=== PATIENT | female | born 1960 | race Caucasian/White ===

== ENCOUNTER 2020-06-06 17:46 | Inpatient (IN) ==
[2020-06-06 18:10] LABS: Basophils # 0.1 10*3/uL (0.0-0.2); Basophils % 0.4 % (0.0-0.8); Eosinophils # 0.1 10*3/uL (0.0-0.87); Eosinophils % 0.4 % (0.00-10.9); Hematocrit 43.8 VOL% (35.7-47.0); Immature Granulocytes % 0.5 %; Immature Granulocytes Absolute 0.06 #; Lymphocytes # 3.5 10*3/uL (1.4-4.0); Mean Corpuscular HGB Conc 34.2 GM/DL (32-36); Mean Platelet Volume 10.2 FL (9.6-12.0); Monocytes % 8.8 % (1.7-12.7); Neutrophils % 61.9 % (38.7-73.9); Platelet Count 198 T/CUMM (130-400); Red Blood Count 4.66 MC/CUMM (3.8-5.5); White Blood Count 12.4 T/CUMM (4-12)
[2020-06-06] MEDS ORDERED: ALUM/MAG/SIMETH/LIDO VISC 1:1 30 ML BOTTLE PO STA (18:13)
[2020-06-06] MEDS ORDERED: NITROGLYCERIN 2% OINT 1 INCH/GM PACK TOP STA (18:13)
[2020-06-06] MEDS ORDERED: MORPHINE 4 MG/1 ML VIAL IV STA (18:13)
[2020-06-06] MEDS ORDERED: ONDANSETRON 4 MG/2 ML VIAL IV STA (18:13)
[2020-06-06] MEDS ORDERED: ASPIRIN 325 MG TABLET PO STA (18:13)
[2020-06-06] MEDS ORDERED: ENOXAPARIN 100 MG/ML SYRINGE SUBCUT STA (18:14)
[2020-06-06 18:40] LABS: PT Patient Result 10.5 SECS (9.8-11.9)
[2020-06-06 18:54] LABS: Alanine Aminotransferase 25 U/L (13-56); Albumin 3.6 G/DL (3.4-5.0); Alkaline Phosphatase 80 U/L (45-117); Aspartate Amino Transferase 74 U/L (0-37); Bilirubin,Total < 0.39 MG/DL (0.2-1.0); Blood Urea Nitrogen 16 MG/DL (7-18); Calcium 8.6 MG/DL (8.5-10.1); Estimated Glom Filtration Rate 71 ML/MIN; Glucose 195 MG/DL (74-106); Osmolality,Calculated 275.1 MOS/KG (273-304)
[2020-06-06] MEDS ORDERED: POTASSIUM CHLORIDE 20 MEQ TABLET PO PRN (22:08)
[2020-06-06] MEDS ORDERED: NICOTINE 21 MG/24 HR PATCH TRANSDERM PRN (22:08)
[2020-06-06] MEDS ORDERED: DEXTROSE 50% 25 GM/50 ML VIAL IV PRN (22:08)
[2020-06-06] MEDS ORDERED: MORPHINE 4 MG/1 ML VIAL IV PRN (22:08)
[2020-06-06] MEDS ORDERED: ONDANSETRON 4 MG/2 ML VIAL IV PRN (22:08)
[2020-06-06] MEDS ORDERED: NITROGLYCERIN SL 0.4 MG TABLET SL PRN (22:08)
[2020-06-06] MEDS ORDERED: MAGNESIUM SULF RIDER 2 GM in PREMIX 1 EACH IV PRN (22:08)
[2020-06-06] MEDS ORDERED: GLUCAGON 1 MG VIAL IM PRN (22:08)
[2020-06-06] MEDS ORDERED: MAGNESIUM SULF RIDER 4 GM in PREMIX 1 EACH IV PRN (22:08)
[2020-06-06] MEDS: GABAPENTIN 300 MG CAPSULE PO SCH (23:03)
[2020-06-06] MEDS: carvediloL 25 MG TABLET PO SCH (23:03)
[2020-06-06] MEDS: SODIUM CHLORIDE 0.9% 1,000 ML IV SCH (23:06)
[2020-06-06] MEDS: ALBUTEROL/IPRATROPIUM 3 ML NEB RESP TX SCH (23:30)
[2020-06-07] MEDS: INSULIN LISPRO 100 UNIT/ML SUBCUT SCH ×4 (00:15→18:42)
[2020-06-07 00:25] LABS: Basophils # 0.1 10*3/uL (0.0-0.2); Basophils % 0.6 % (0.0-0.8); Eosinophils # 0.1 10*3/uL (0.0-0.87); Eosinophils % 0.4 % (0.00-10.9); Hematocrit 44.1 VOL% (35.7-47.0); Immature Granulocytes % 0.4 %; Immature Granulocytes Absolute 0.04 #; Lymphocytes % 35.7 % (21.3-54.2); Mean Platelet Volume 10.3 FL (9.6-12.0); Monocytes % 10.4 % (1.7-12.7); Neutrophils % 52.5 % (38.7-73.9); Platelet Count 193 T/CUMM (130-400); Red Blood Count 4.64 MC/CUMM (3.8-5.5); Red Cell Distribution Width 12.1 % (9.3-17.3); White Blood Count 11.3 T/CUMM (4-12)
[2020-06-07 00:57] LABS: Albumin 3.1 G/DL (3.4-5.0); Bilirubin,Total 0.4 MG/DL (0.2-1.0); Calcium 8.8 MG/DL (8.5-10.1); Osmolality,Calculated 269.4 MOS/KG (273-304); Risk Ratio 4.07; Total Protein 8.1 G/DL (6.4-8.3)
[2020-06-07] MEDS: ALBUTEROL/IPRATROPIUM 3 ML NEB RESP TX SCH ×4 (01:50→20:17)
[2020-06-07 02:22] LABS: Lymphocytes 47 % (20-55); Platelet Estimate Normal; Segmented Neutrophils 48 % (50-85)
[2020-06-07 02:23] LABS: Microcytosis Slight
[2020-06-07 02:24] LABS: Stomatocytes Slight; Total Cells Counted 100
[2020-06-07] MEDS ORDERED: ENOXAPARIN 80 MG/0.8 ML SYRINGE SUBCUT SCH (08:00)
[2020-06-07] MEDS ORDERED: POTASSIUM CHLORIDE RIDER 10 MEQ in PREMIX 1 EACH IV PRN (08:11)
[2020-06-07] MEDS ORDERED: DIAZEPAM 5 MG TABLET PO ONE (08:11)
[2020-06-07] MEDS ORDERED: diphenhydrAMINE CAP 25 MG CAPSULE PO ONE (08:11)
[2020-06-07] MEDS ORDERED: MIDAZOLAM 2 MG/2 ML VIAL ONE (08:31)
[2020-06-07] MEDS ORDERED: LIDOCAINE 1% 20 ML VIAL ONE (08:31)
[2020-06-07] MEDS ORDERED: fentaNYL 100 MCG/2 ML VIAL ONE (08:31)
[2020-06-07] MEDS ORDERED: ASPIRIN 325 MG TABLET ONE (09:01)
[2020-06-07] MEDS: carvediloL 25 MG TABLET PO SCH ×2 (09:42→17:08)
[2020-06-07] MEDS ORDERED: PROMETHAZINE 25 MG/1 ML VIAL ONE (09:48)
[2020-06-07] MEDS ORDERED: TIROFIBAN 5,000 MCG/100 ML PREMIX IV ONE (10:00)
[2020-06-07] MEDS ORDERED: CLOPIDOGREL 300 MG TABLET ONE (10:01)
[2020-06-07] MEDS: IPRATROPIUM 500 MCG/2.5 ML NEB RESP TX SCH (13:35)
[2020-06-07] MEDS: SODIUM CHLORIDE 0.9% 1,000 ML IV SCH ×2 (14:36→23:26)
[2020-06-07] MEDS: ISOSORBIDE MONONITRATE 60 MG TABLET PO SCH (14:37)
[2020-06-07] MEDS: carBAMazepine 200 MG TABLET PO SCH ×2 (14:37→23:26)
[2020-06-07] MEDS: CLOPIDOGREL 75 MG TABLET PO SCH (14:37)
[2020-06-07] MEDS: ARIPiprazole 10 MG TABLET PO SCH (14:37)
[2020-06-07] MEDS: GABAPENTIN 300 MG CAPSULE PO SCH ×3 (14:37→23:27)
[2020-06-07] MEDS: ASPIRIN EC 81 MG TABLET PO SCH (14:38)
[2020-06-07] MEDS: LOSARTAN/HCTZ 50-12.5 MG TABLET PO SCH (14:38)
[2020-06-07] MEDS ORDERED: DOCUSATE SODIUM 100 MG CAPSULE PO SCH (18:00)
[2020-06-07] MEDS ORDERED: ROSUVASTATIN 20 MG TABLET PO SCH (21:00)
[2020-06-08] MEDS: INSULIN LISPRO 100 UNIT/ML SUBCUT SCH ×3 (00:01→12:11)
[2020-06-08] MEDS: ALBUTEROL/IPRATROPIUM 3 ML NEB RESP TX SCH ×2 (03:12→07:31)
[2020-06-08] MEDS ORDERED: ENOXAPARIN 40 MG/0.4 ML SYRINGE SUBCUT SCH (04:36)
[2020-06-08] MEDS: SODIUM CHLORIDE 0.9% 1,000 ML IV SCH (05:01)
[2020-06-08 05:13] LABS: Basophils # 0.1 10*3/uL (0.0-0.2); Basophils % 0.5 % (0.0-0.8); Eosinophils # 0.1 10*3/uL (0.0-0.87); Eosinophils % 0.6 % (0.00-10.9); Hematocrit 39.3 VOL% (35.7-47.0); Hemoglobin 13.2 GM/DL (12.0-16.0); Immature Granulocytes % 0.4 %; Immature Granulocytes Absolute 0.04 #; Lymphocytes # 2.7 10*3/uL (1.4-4.0); Lymphocytes % 26.2 % (21.3-54.2); Mean Corpuscular HGB Conc 33.6 GM/DL (32-36); Mean Corpuscular Volume 96.3 FL (87-102); Mean Platelet Volume 10.7 FL (9.6-12.0); Neutrophils % 62.3 % (38.7-73.9); Red Blood Count 4.08 MC/CUMM (3.8-5.5); White Blood Count 10.4 T/CUMM (4-12)
[2020-06-08 05:20] LABS: Platelet Count 136 T/CUMM (130-400)
[2020-06-08 05:44] LABS: CKMB % 3.9 %; Calcium 8.4 MG/DL (8.5-10.1); Osmolality,Calculated 273.7 MOS/KG (273-304)
[2020-06-08 05:45] LABS: Troponin I 14.9 NG/ML (0.00-0.045)
[2020-06-08] MEDS: ISOSORBIDE MONONITRATE 60 MG TABLET PO SCH (09:45)
[2020-06-08] MEDS: CLOPIDOGREL 75 MG TABLET PO SCH (09:45)
[2020-06-08] MEDS: carBAMazepine 200 MG TABLET PO SCH (09:45)
[2020-06-08] MEDS: LOSARTAN/HCTZ 50-12.5 MG TABLET PO SCH (09:46)
[2020-06-08] MEDS: ASPIRIN EC 81 MG TABLET PO SCH (09:46)
[2020-06-08] MEDS: GABAPENTIN 300 MG CAPSULE PO SCH (09:46)
[2020-06-08] MEDS: ARIPiprazole 10 MG TABLET PO SCH (09:46)
[2020-06-08] MEDS: carvediloL 25 MG TABLET PO SCH (09:46)
[2020-06-08 11:57] VITALS: BP 101/69
== END 2020-06-08 13:29 | disposition home or self-care (01) | DRG 247 ==
LOC: N.ED 17:46 → N.EDINP 18:50 → N.TELEN 19:58
PROVIDERS: ADMIT Internal Medicine Cardiovascular Disease; ATTEND Internal Medicine Cardiovascular Disease
PROC: CLDESPG (ICD-10-PCS; 2020-06-07 10:45)

== ENCOUNTER 2021-06-12 09:48 | Observation (INO) ==
[2021-06-12] MEDS ORDERED: NITROGLYCERIN SL 0.4 MG TABLET SL PRN (11:05)
[2021-06-12] MEDS ORDERED: ENOXAPARIN 100 MG/ML SYRINGE SUBCUT STA (11:05)
[2021-06-12 11:23] LABS: Basophils % 0.3 % (0.0-0.8); Eosinophils # 0.1 10*3/uL (0.0-0.87); Hematocrit 41.5 VOL% (35.7-47.0); Hemoglobin 13.6 GM/DL (12.0-16.0); Immature Granulocytes % 0.4 %; Immature Granulocytes Absolute 0.04 #; Lymphocytes # 2.3 10*3/uL (1.4-4.0); Lymphocytes % 25.5 % (21.3-54.2); Mean Corpuscular HGB Conc 32.8 GM/DL (32-36); Mean Corpuscular Volume 97.9 FL (87-102); Mean Platelet Volume 10.6 FL (9.6-12.0); Monocytes % 6.9 % (1.7-12.7); Neutrophils % 65.9 % (38.7-73.9); Platelet Count 186 T/CUMM (130-400); Red Blood Count 4.24 MC/CUMM (3.8-5.5); Red Cell Distribution Width 12.5 % (9.3-17.3)
[2021-06-12] MEDS ORDERED: SODIUM CHLORIDE 0.9% 500 ML IV STA (11:38)
[2021-06-12 11:45] LABS: Alanine Aminotransferase 17 U/L (13-56); Albumin 3.4 G/DL (3.4-5.0); Alkaline Phosphatase 73 U/L (45-117); Aspartate Amino Transferase 17 U/L (0-37); Bilirubin,Total < 0.39 MG/DL (0.20-1.00); Blood Urea Nitrogen 11 MG/DL (7-18); Calcium 8.5 MG/DL (8.5-10.1); Carbon Dioxide 29 MMOL/L (21-32); Estimated Glom Filtration Rate 100 ML/MIN; Glucose 70 MG/DL (74-106); Osmolality,Calculated 275.4 MOS/KG (273-304); Potassium 3.8 MMOL/L (3.5-5.1); Sodium 140 MMOL/L (136-145); Total Protein 7.4 G/DL (6.4-8.2)
[2021-06-12 11:46] LABS: Anisocytosis 1+; Eosinophils 1 % (0-10); Lymphocytes 27 % (20-55); Macrocytosis Slight; Platelet Estimate Normal; Segmented Neutrophils 68 % (50-85); Total Cells Counted 100
[2021-06-12] MEDS ORDERED: BISACODYL 5 MG TABLET PO PRN (12:23)
[2021-06-12] MEDS ORDERED: GLUCAGON 1 MG VIAL IM PRN (12:23)
[2021-06-12] MEDS ORDERED: ACETAMINOPHEN 325 MG TABLET PO PRN (12:23)
[2021-06-12] MEDS ORDERED: DEXTROSE 50% 25 GM/50 ML VIAL IV PRN (12:23)
[2021-06-12] MEDS ORDERED: ONDANSETRON 4 MG/2 ML VIAL IV PRN (12:23)
[2021-06-12] MEDS ORDERED: NICOTINE 21 MG/24 HR PATCH TRANSDERM PRN (14:46)
[2021-06-12] MEDS ORDERED: ALBUTEROL 2.5 MG/3 ML NEB RESP TX PRN (14:49)
[2021-06-12 15:05] LABS: Barbiturates Screen,Urine Negative (Negative); Benzodiazepines Screen,Urine Negative (Negative); Cannabinoid Screen,Urine Negative (Negative); Opiate Screen,Urine Negative (Negative); Phencyclidine Screen,Urine Negative (Negative)
[2021-06-12] MEDS: PANTOPRAZOLE 40 MG TABLET PO SCH (17:31)
[2021-06-12] MEDS: GABAPENTIN 300 MG CAPSULE PO SCH ×2 (17:31→21:17)
[2021-06-12] MEDS: INSULIN LISPRO 100 UNIT/ML SUBCUT SCH ×2 (17:31→21:50)
[2021-06-12] MEDS ORDERED: ARIPiprazole 10 MG TABLET PO SCH (21:00)
[2021-06-12] MEDS: carvediloL 25 MG TABLET PO SCH (21:17)
[2021-06-13] MEDS: ENOXAPARIN 80 MG/0.8 ML SYRINGE SUBCUT SCH ×2 (00:19→11:49)
[2021-06-13 05:49] LABS: Basophils % 0.7 % (0.0-0.8); Eosinophils # 0.1 10*3/uL (0.0-0.87); Eosinophils % 1.6 % (0.00-10.9); Hematocrit 39.6 VOL% (35.7-47.0); Immature Granulocytes % 0.4 %; Immature Granulocytes Absolute 0.02 #; Lymphocytes # 2.2 10*3/uL (1.4-4.0); Lymphocytes % 40.3 % (21.3-54.2); Mean Corpuscular HGB Conc 32.8 GM/DL (32-36); Mean Corpuscular Volume 97.8 FL (87-102); Mean Platelet Volume 10.5 FL (9.6-12.0); Monocytes % 8.7 % (1.7-12.7); Neutrophils % 48.3 % (38.7-73.9); Platelet Count 153 T/CUMM (130-400); Red Blood Count 4.05 MC/CUMM (3.8-5.5); Red Cell Distribution Width 12.3 % (9.3-17.3); White Blood Count 5.5 T/CUMM (4-12)
[2021-06-13 06:11] LABS: Platelet Estimate Adequate
[2021-06-13 06:18] LABS: Bilirubin,Total 0.5 MG/DL (0.20-1.00); Calcium 8.3 MG/DL (8.5-10.1); Osmolality,Calculated 279.4 MOS/KG (273-304); Potassium 3.5 MMOL/L (3.5-5.1); Total Protein 7.1 G/DL (6.4-8.2)
[2021-06-13 06:35] LABS: Risk Ratio 3.7; Thyroid Stimulating Hormone 2.16 uIU/ml (0.358-3.74)
[2021-06-13] MEDS: INSULIN LISPRO 100 UNIT/ML SUBCUT SCH ×2 (07:59→11:57)
[2021-06-13] MEDS ORDERED: LOSARTAN/HCTZ 50-12.5 MG TABLET PO SCH (09:00)
[2021-06-13] MEDS ORDERED: ROSUVASTATIN 20 MG TABLET PO SCH (09:00)
[2021-06-13] MEDS ORDERED: CLOPIDOGREL 75 MG TABLET PO SCH (09:00)
[2021-06-13] MEDS ORDERED: ASPIRIN EC 81 MG TABLET PO SCH (09:00)
[2021-06-13] MEDS ORDERED: ISOSORBIDE MONONITRATE 60 MG TABLET PO SCH (09:00)
[2021-06-13] MEDS ORDERED: DOCUSATE SODIUM 100 MG CAPSULE PO SCH (09:00)
[2021-06-13] MEDS: PANTOPRAZOLE 40 MG TABLET PO SCH (09:02)
[2021-06-13] MEDS: GABAPENTIN 300 MG CAPSULE PO SCH (09:02)
[2021-06-13] MEDS: carvediloL 25 MG TABLET PO SCH (09:02)
[2021-06-13 12:24] VITALS: BP 124/60
== END 2021-06-13 12:45 | disposition home or self-care (01) ==
LOC: N.ED 09:48 → N.EDINP 09:48 → N.TELES 17:18
PROVIDERS: ADMIT Internal Medicine; ATTEND Internal Medicine